=== PATIENT | female | born 1990 | race Caucasian/White ===

== ENCOUNTER 2018-01-05 03:53 | Emergency (ER) | payer BC ==
[~2018-01-05] VITALS: Ht 160 cm; Wt 67.4 kg
[~2018-01-05 03:53] MED LIST: ANAPROX DS550 M1 PO; Motrin PO
[2018-01-05] MEDS ORDERED: AUGMENTIN875 MG PO (05:11)
[2018-01-05 06:03] VITALS: BP 129/88
== END 2018-01-05 06:05 | disposition home or self-care (01) ==
LOC: EME 03:53
PROC: 2Y41X5Z Packing of Nasal Region using Packing Material (ICD-10-PCS; principal; 2018-01-05)
DX: R04.0 Epistaxis (principal); Z98.890 Other specified postprocedural states
CPT/HCPCS: 99281; 99284

== ENCOUNTER 2018-01-07 21:36 | Emergency (ER) | payer BC ==
[~2018-01-07] VITALS: Ht 160 cm; Wt 66.0 kg
[~2018-01-07 21:36] MED LIST changes: +AUGMENTIN875 MG PO
[2018-01-08] LABS: HEMATOCRIT 30.6 % (36.0-46.0); HEMOGLOBIN 10.8 G/DL (11.9-15.5); MCH 30.3 PG (29.0-34.0); MCHC 35.3 G/DL (30.0-36.0); PLATELET COUNT 270 K/uL (156-360); RBC DIS.WIDTH-CV 11.3 % (11.8-14.6); RBC DIS.WIDTH-SD 35.7 % (39-53); RED BLOOD COUNT 3.56 M/uL (3.80-5.20); WHITE BLOOD COUNT 12.8 K/uL (4.1-10.2)
[2018-01-08 00:06] LABS: INTER. NORMALIZED RATIO 1.2
[2018-01-08 00:08] LABS: CHLORIDE 106 mEq/L (99-109); POTASSIUM 3.9 mEq/L (3.7-5.4); PTT 25.9 SEC (25-37); SODIUM 140 mEq/L (136-147)
[2018-01-08 00:10] LABS: GLUCOSE 121 mg/dL (70-99)
[2018-01-08 00:14] LABS: CREATININE 0.7 mg/dL (0.6-1.3); GFR ESTIMATE (CALCULATED) > 59 mL/min/; UREA NITROGEN (BUN) 29 mg/dL (9-23)
[2018-01-08] MEDS ORDERED: MOTRIN600 MG PO (02:28)
[2018-01-08 03:19] VITALS: BP 111/83
== END 2018-01-08 03:20 | disposition home or self-care (01) ==
LOC: EME 21:36
PROVIDERS: Nurse Practitioner Family
PROC: 2Y41X5Z Packing of Nasal Region using Packing Material (ICD-10-PCS; principal; 2018-01-07)
DX: R04.0 Epistaxis (principal); D64.9 Anemia, unspecified; Z98.890 Other specified postprocedural states
CPT/HCPCS: 80048; 85027; 85610; 85730; 99281; 99285; J1885; J7030

== ENCOUNTER 2018-01-10 00:01 | Inpatient (IN) | payer BC ==
[~2018-01-10] VITALS: Ht 160 cm; Wt 66.3 kg
[2018-01-10] VITALS (12 sets, daily range): BP systolic 115–133; BP diastolic 72–95
[~2018-01-10 00:01] MED LIST changes: +MOTRIN600 MG PO
[2018-01-10 01:46] LABS: INTER. NORMALIZED RATIO 1.2
[2018-01-10 01:47] LABS: HEMOGLOBIN 7.5 G/DL (11.9-15.5); MCH 30.9 PG (29.0-34.0); MCHC 35.7 G/DL (30.0-36.0); MCV 86.4 FL (83-99); PLATELET COUNT 227 K/uL (156-360); RBC DIS.WIDTH-CV 11.6 % (11.8-14.6); RBC DIS.WIDTH-SD 36.4 % (39-53); RED BLOOD COUNT 2.43 M/uL (3.80-5.20); WHITE BLOOD COUNT 8.9 K/uL (4.1-10.2)
[2018-01-10 01:52] LABS: ALBUMIN 3.4 g/dL (3.2-4.8)
[2018-01-10 01:53] LABS: CHLORIDE 109 mEq/L (99-109); POTASSIUM 3.5 mEq/L (3.7-5.4); SODIUM 142 mEq/L (136-147)
[2018-01-10 01:55] LABS: GLUCOSE 126 mg/dL (70-99); TOTAL PROTEIN 5.6 g/dL (6.4-8.3)
[2018-01-10 01:57] LABS: TOTAL BILIRUBIN 0.2 mg/dL (0.0-1.0)
[2018-01-10 01:58] LABS: ALKALINE PHOSPHATASE 47 IU/L (3-129)
[2018-01-10 01:59] LABS: CREATININE 0.7 mg/dL (0.6-1.3); GFR ESTIMATE (CALCULATED) > 59 mL/min/
[2018-01-10 02:00] LABS: AST (GOT) 10 IU/L (2-34); UREA NITROGEN (BUN) 15 mg/dL (9-23)
[2018-01-10 02:02] LABS: ALT (GPT) 8 IU/L (3-49)
[2018-01-10 02:13] LABS: QUANTITATIVE HCG < 4.0 MIU/ML
[2018-01-10 11:21] LABS: HEMATOCRIT 21.3 % (36.0-46.0); HEMOGLOBIN 7.3 G/DL (11.9-15.5); MCHC 34.3 G/DL (30.0-36.0); MCV 87.7 FL (83-99); PLATELET COUNT 210 K/uL (156-360); RBC DIS.WIDTH-CV 12.2 % (11.8-14.6); RBC DIS.WIDTH-SD 39.1 % (39-53); RED BLOOD COUNT 2.43 M/uL (3.80-5.20); WHITE BLOOD COUNT 9.8 K/uL (4.1-10.2)
[2018-01-10] MEDS ORDERED: FLONASE16 G1 BOTH NARES (13:00)
[2018-01-10] MEDS ORDERED: ALLEGRA ALLERGY60 MG PO (13:00)
[2018-01-10] MEDS ORDERED: ACETAMINOPHEN325 M1 PO (13:01)
[2018-01-10 20:36] LABS: HEMATOCRIT 25.8 % (36.0-46.0); HEMOGLOBIN 8.9 G/DL (11.9-15.5); MCH 29.9 PG (29.0-34.0); MCHC 34.5 G/DL (30.0-36.0); MCV 86.6 FL (83-99); PLATELET COUNT 218 K/uL (156-360); RBC DIS.WIDTH-CV 12.4 % (11.8-14.6); RBC DIS.WIDTH-SD 38.5 % (39-53); WHITE BLOOD COUNT 12.2 K/uL (4.1-10.2)
[2018-01-10 20:43] LABS: RED BLOOD COUNT 2.98 M/uL (3.80-5.20)
[2018-01-11 04:30] VITALS: BP 140/87
[2018-01-11 05:58] LABS: HEMATOCRIT 24.8 % (36.0-46.0); HEMOGLOBIN 8.8 G/DL (11.9-15.5); MCH 30.7 PG (29.0-34.0); MCHC 35.5 G/DL (30.0-36.0); MCV 86.4 FL (83-99); PLATELET COUNT 208 K/uL (156-360); RBC DIS.WIDTH-CV 12.6 % (11.8-14.6); RED BLOOD COUNT 2.87 M/uL (3.80-5.20); WHITE BLOOD COUNT 11.3 K/uL (4.1-10.2)
[2018-01-11 06:31] LABS: CHLORIDE 104 MEQ/L (99-109); CREATININE 0.6 MG/DL (0.6-1.3); GFR ESTIMATE (CALCULATED) > 59 mL/min/; GLUCOSE 117 mg/dL (70-99); SODIUM 137 MEQ/L (136-147); UREA NITROGEN (BUN) 5 mg/dL (9-23)
[2018-01-11 07:57] VITALS: BP 128/74
[2018-01-11 15:42] VITALS: BP 114/67
[2018-01-12 00:29] VITALS: BP 100/58
[2018-01-12 06:08] LABS: HEMATOCRIT 26.5 % (36.0-46.0); MCH 29.9 PG (29.0-34.0); PLATELET COUNT 241 K/uL (156-360); RBC DIS.WIDTH-CV 12.7 % (11.8-14.6); RED BLOOD COUNT 3.01 M/uL (3.80-5.20); WHITE BLOOD COUNT 6.6 K/uL (4.1-10.2)
[2018-01-12 07:19] VITALS: BP 116/55
[2018-01-12] MEDS ORDERED: AUGMENTIN875 MG PO (10:59)
== END 2018-01-12 11:58 | disposition home or self-care (01) | DRG 151 ==
LOC: EME 00:01 → EDOF 03:49 → 5SOUTH 03:49 → ENRESERV 03:55 → 5SOUTH 05:10
PROVIDERS: Internal Medicine; Physician Assistant
PROC: 2Y41X5Z Packing of Nasal Region using Packing Material (ICD-10-PCS; principal; 2018-01-10)
PROC: 30233N1 Transfusion of Nonautologous Red Blood Cells into Peripheral Vein, Percutaneous Approach (ICD-10-PCS; principal; 2018-01-10)
DX: R04.0 Epistaxis (principal); D62 Acute posthemorrhagic anemia; E87.6 Hypokalemia; R51 Headache; R79.1 Abnormal coagulation profile
CPT/HCPCS: 80048; 80053; 84702; 85027; 85610; 85730; 86850; 86900; 86901; 86920; 99281; 99285; J0295; J1170; J1885; J2270; J2405; J3010; J7030; J7050; P9016